=== PATIENT | female | born 1975 | race American Indian/Alaskan Native ===

== ENCOUNTER 2021-09-11 16:29 | Observation (INO) | payer SELFPAY ==
[2021-09-11 17:14] LABS: Mean Corpuscular HGB Conc 30 % (30-34); Platelet Count 407 K/mm3 (140-440); Red Blood Count 2.42 M/mm3 (3.65-5.03); Red Cell Distribution Width 19.9 % (13.2-15.2)
[2021-09-11 17:16] LABS: Hematocrit 15.7 % (30.3-42.9); Hemoglobin 4.7 gm/dl (10.1-14.3); Mean Corpuscular Volume 65 fl (79-97)
[2021-09-11 18:19] LABS: Bilirubin,Urine NEG (Negative); Blood,Urine LG (Negative); Color,Urine Yellow (Yellow); Protein,Urine <15 mg/dL mg/dL (Negative); Urobilinogen,Urine < 2.0 mg/dL (<2.0)
[2021-09-11 18:23] LABS: Mucus,Urine FEW /HPF
[2021-09-11] MEDS ORDERED: SODIUM CHLORIDE 0.9% 500 ML 500 ML IV ONE ×2 (18:24→18:43)
--- NOTE | 2021-09-11 18:35 | Emergency Department Report ---
ED Female HPI - General Chief complaint: Vaginal Bleeding Stated complaint: VAGINAL BLOOD CLOTS FOR OVER 3WEEKS Time Seen by Provider: 09/11/21 17:49 Source: patient Mode of arrival: Ambulatory Limitations: No Limitations - History of Present Illness Initial comments: 46-year-old female the past medical history of iron deficiency anemia, uterine fibroids and previous thyroid cancer status post thyroidectomy currently on Synthroid presents to the hospital complaining of lightheadedness, fatigue, and intermittent palpitations. Patient states she can only stand for approximately 1 minute before feel like she is going to pass out. Patient has been noncompliant with iron medication x2 months and has been having heavy vaginal bleeding with passage of clots for least 3 weeks. Patient is currently having vaginal bleeding. patient recently made an appointment with DIRECTOR OF NEUROLOGY scheduled for with [facility] physicians. - Related Data Home Medications Medication Instructions Recorded Confirmed Last Taken Levothyroxine 100 mcg PO DAILY 09/11/21 09/11/21 Unknown Allergies Allergy/AdvReac Type Severity Reaction Status Date / Time Penicillins Allergy Unknown Verified 09/11/21 16:33 ED Review of Systems ROS: Stated complaint: VAGINAL BLOOD CLOTS FOR OVER 3WEEKS Other details as noted in HPI Comment: All other systems reviewed and negative ED Past Medical Hx - Past Medical History Previous Medical History?: Yes Hx of Cancer: Yes (thyroid) Additional medical history: Uterine fibroids, Anemia - Surgical History Past Surgical History?: Yes Additional Surgical History: thyroidectomy - Social History Smoking Status: Never Smoker Substance Use Type: None - Medications Home Medications: Home Medications Medication Instructions Recorded Confirmed Last Taken Type Levothyroxine 100 mcg PO DAILY 09/11/21 09/11/21 Unknown History ED Physical Exam - General Limitations: No Limitations - Other Other exam information: General: No acute distress Head: Atraumatic Eyes: normal appearance ENT: Moist mucous membranes Neck: Normal appearance, no midline tenderness Chest: Clear to auscultation bilaterally CV: Regular rate and rhythm Abdomen: Soft, normal bowel sounds, nontender, nondistended, no rebound or guarding Back: Normal inspection Extremity: Normal inspection, full range of motion Neuro: Alert O x 3, no facial asymmetry, speech clear, no gross motor sensory deficit Psych: Appropriate behavior Skin: Pale nailbeds ED Course Vital Signs 09/11/21 09/11/21 09/11/21 16:36 18:08 18:12 Temperature 98.5 F Pulse Rate 95 H 94 H Respiratory 18 17 Rate Blood Pressure 101/64 O2 Sat by Pulse 100 97 Oximetry 09/11/21 09/11/21 09/11/21 18:16 18:21 18:30 Temperature Pulse Rate 75 76 Respiratory 15 9 L Rate Blood Pressure 111/62 104/71 O2 Sat by Pulse 92 97 100 Oximetry - Consultations Consultation #1: 09/11/21 18:30 Case discussed with on-call DIRECTOR OF NEUROLOGY Dr. Dr. Alvarado who will admit patient and order additional PRBCs as needed ED Medical Decision Making - Lab Data Result diagrams: 09/11/21 16:58 Lab Results 09/11/21 09/11/21 09/11/21 Range/Units 16:58 16:58 18:11 WBC 4.0 L (4.5-11.0) K/mm3 RBC 2.42 L (3.65-5.03) M/mm3 Hgb 4.7 L* (10.1-14.3) gm/dl Hct 15.7 L* (30.3-42.9) % MCV 65 L (79-97) fl MCH 19 L (28-32) pg MCHC 30 (30-34) % RDW 19.9 H (13.2-15.2) % Plt Count 407 (140-440) K/mm3 HCG, Qual Negative (Negative) Urine Color (Yellow) Urine Turbidity (Clear) Urine pH (5.0-7.0) Ur Specific [place] (1.003-1.030) Urine Protein (Negative) mg/dL Urine Glucose (UA) (Negative) mg/dL Urine Ketones (Negative) mg/dL Urine Blood (Negative) Urine Nitrite (Negative) Urine Bilirubin (Negative) Urine Urobilinogen (<2.0) mg/dL Ur Leukocyte Esterase (Negative) Urine WBC (Auto) (0.0-6.0) /HPF Urine RBC (Auto) (0.0-6.0) /HPF U Epithel Cells (Auto) (0-13.0) /HPF Urine Mucus /HPF Blood Type O POSITIVE Crossmatch See Detail 09/11/21 Range/Units Unknown WBC (4.5-11.0) K/mm3 RBC (3.65-5.03) M/mm3 Hgb (10.1-14.3) gm/dl Hct (30.3-42.9) % MCV (79-97) fl MCH (28-32) pg MCHC (30-34) % RDW (13.2-15.2) % Plt Count (140-440) K/mm3 HCG, Qual (Negative) Urine Color Yellow (Yellow) Urine Turbidity Hazy (Clear) Urine pH 7.0 (5.0-7.0) Ur Specific [place] 1.016 (1.003-1.030) Urine Protein <15 mg/dl (Negative) mg/dL Urine Glucose (UA) Neg (Negative) mg/dL Urine Ketones 20 (Negative) mg/dL Urine Blood Lg (Negative) Urine Nitrite Neg (Negative) Urine Bilirubin Neg (Negative) Urine Urobilinogen < 2.0 (<2.0) mg/dL Ur Leukocyte Esterase Neg (Negative) Urine WBC (Auto) 1.0 (0.0-6.0) /HPF Urine RBC (Auto) 182.0 (0.0-6.0) /HPF U Epithel Cells (Auto) 3.0 (0-13.0) /HPF Urine Mucus Few /HPF Blood Type Crossmatch - Medical Decision Making 46-year-old female with history of uterine fibroids and iron deficiency anemia presents to the hospital complaining of symptoms of significant anemia. Hemoglobin 4.7. Patient have a heavy vaginal bleeding for the past 3 weeks and has been noncompliant with iron tablets. No hypotension, tachycardia, or hypoxia in the ED 1 unit of PRBC ordered at this time. She will be admitted to DIRECTOR OF NEUROLOGY. Critical care attestation.: If time is entered above; I have spent that time in minutes in the direct care of this critically ill patient, excluding procedure time. ED Disposition Clinical Impression: Menorrhagia, Symptomatic anemia, Fibroid uterus, Acquired hypothyroidism Disposition: ADMITTED INPATIENT Is pt being admited?: Yes Condition: Stable Time of Disposition: 18:31 (Dr. alvarado)
[2021-09-11] MEDS ORDERED: IBUPROFEN 800 MG TAB PO PRN (18:43)
[2021-09-11] MEDS ORDERED: MORPHINE 4 MG/1 ML INJ IV PRN (18:43)
[2021-09-11] MEDS ORDERED: ACETAMINOPHEN 325 MG TAB PO PRN ×2 (18:43→18:52)
[2021-09-11 18:46] LABS: INR 0.96 (0.87-1.13); Partial Thromboplastin Time 28.4 Sec. (24.2-36.6)
[2021-09-11] MEDS ORDERED: DOCUSATE SODIUM 100 MG CAP PO PRN (18:52)
--- NOTE | 2021-09-12 09:47 | History and Physical Report ---
History of Present Illness Date of examination: 09/12/21 Date of admission: 09/11/21 18:52 Chief complaint: I was bleeding a lot and a lot of clots were coming out. 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 She was also feeling dizzy, lightheaded, and having heart palpitations. Pt states that she has a normal menstrual cycle up to when she had her thyroid removed d/t thyroid cancer. Since her thyroidectomy in 2013, her cycles have been irregular and heavy. Pt states that she was "just dealing with the bleeding at home", but when her cycles became too heavy, she sought medical attention from her PCP. She was prescribed iron supplementation and referred to a SENIOR COMMUNICATIONS SPECIALIST. She has her first appointment on 09/16. She also states that she wanted to seek a second opinion regarding her condition. Of note: patient has not been compliant with her iron supplementation (Prescribed by her PCP) for the last 2 months because she does not like taking medication and it caused constipation. She states that she has been taking an herbal supplement that has been working for her and when she discontinued this herbal supplement her symptoms of anemia returned. Pt mentioned frequently that she had fibroids and wanted to know the difference between fibroids and perimenopause. She attributes her anemia and heavy vaginal bleeding to having fibroids, which she states that she has had for years. 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 History: fibroids Family/Genetic History: none Social history: no significant social history - Obstetrical History : 3 Para: 3 Hx # Term Pregnancies: 3 Number of Pregnancies: 0 Spontaneous Abortions: 0 Induced : 0 Number of Living Children: 3 Medications and Allergies Allergies Allergy/AdvReac Type Severity Reaction Status Date / Time Penicillins Allergy Unknown Verified 09/11/21 16:33 Home Medications Medication Instructions Recorded Confirmed Last Taken Type Levothyroxine 100 mcg PO DAILY 09/11/21 09/11/21 Unknown History Active Meds: Active Medications Acetaminophen (Acetaminophen 325 Mg Tab) 1,000 mg PO Q6H PRN PRN Reason: Pain, Mild (1-3) Docusate Sodium (Docusate Sodium 100 Mg Cap) 100 mg PO Q12H PRN PRN Reason: Constipation Ibuprofen (Ibuprofen 800 Mg Tab) 800 mg PO Q8H PRN PRN Reason: Pain, Moderate (4-6) Miscellaneous Medication (Levothyroxine) 100 mcg PO DAILY REGINA Multivitamins/Iron/Calcium ( Ohc72-Tg Fumarate-Folic Acid Vit Tab) 1 each PO QDAY REGINA Review of Systems All systems: negative - Vital Signs Vital signs: Vital Signs Temp Pulse Resp BP Pulse Ox 98.5 F 95 H 18 101/64 100 09/11/21 16:36 09/11/21 16:36 09/11/21 16:36 09/11/21 16:36 09/11/21 16:36 Temp Pulse Resp BP Pulse Ox 98.3 F 86 18 97/62 98 09/12/21 02:43 09/12/21 02:43 09/12/21 02:43 09/12/21 02:43 09/12/21 02:43 Pt would not allow a full exam at this time. Was not able to assess her vaginal bleeding. Per patient: bleeding has stopped since receiving transfusion. Ulnar deviation noted to her hands with the right hand more pronounced then the left. - Physical Exam Cardiovascular: Regular rate Lungs: Positive: Normal air movement Extremities: Positive: normal Results Result Diagrams: 09/11/21 16:58 Abnormal lab results 09/11/21 09/11/21 Range/Units 16:58 18:11 WBC 4.0 L (4.5-11.0) K/mm3 RBC 2.42 L (3.65-5.03) M/mm3 Hgb 4.7 L* (10.1-14.3) gm/dl Hct 15.7 L* (30.3-42.9) % MCV 65 L (79-97) fl MCH 19 L (28-32) pg RDW 19.9 H (13.2-15.2) % Crossmatch See Detail All other labs normal. Assessment and Plan A: 46 y.o. symptomatic anemia, menorrhagia. - Patient Problems (1) Menorrhagia Current Visit: Yes Status: Acute Qualifiers: Menorrhagia type: with irregular cycle Qualified Code(s): N92.1 - Excessive and frequent menstruation with irregular cycle Plan to address problem: Consulted with Dr. Alvarado. Labs drawn and sent from ER: -Coagulation studies -Urinalysis -CBC w/o diff -HCG Qual Pt is s/p transfusion: received 3 units PRBCs. Will redraw H/H 4 hours after last transfusion finished. - ordered for 1000. Awaiting results. If Hgb above 7, will discharge home with f/u in office in 1 wk. Pt declines medication to further assist in decreasing and stopping vaginal bleeding. (2) Symptomatic anemia Current Visit: Yes Status: Acute Plan to address problem: Ordered and transfused: 3 units PRBCs. Continue to monitor for worsening feelings of dizziness, lightheadedness. - Monitor for new development of chest pain and shortness of breath.
[2021-09-12] MEDS ORDERED: PRENATAL VIT27-FE FUMARATE-FOLIC ACID VIT TAB PO SCH (10:00)
[2021-09-12] MEDS ORDERED: NON-FORMULARY EACH (Levothyroxine 100 MCG) PO SCH (10:00)
[2021-09-12 13:04] VITALS: BP 96/57
[2021-09-12 13:29] LABS: Hematocrit 25.1 % (30.3-42.9); Hemoglobin 7.8 gm/dl (10.1-14.3)
--- NOTE | 2021-09-12 14:18 | Discharge Summary ---
Providers - Providers Date of Admission: 09/11/21 18:52 Date of discharge: 09/12/21 Attending physician: MARIO HDZ Primary care physician: ROSALINA JACKSON Hospitalization Reason for admission: other (Menorrhagia and symptomatic anemia) Pertinent studies: Of note: patient states that she will not take iron supplementation at this time. She would like to return to taking her herbal iron supplement. She is aware that she can hand picker Rx from pharmacy when ready if she desires. On discharge, patient denied chest pain, feeling lightheaded, dizzy, and short of breath. Discussed follow up in the office in 1 week. Pt provided number to office on discharge instructions. Hospital course: S: Pt doing well. Denies chest pain, shortness of breath, feeling dizzy and/or lightheaded. She states she is much better after transfusion of PRBC's. Per pt, vaginal bleeding has stopped. O: VSS. H/H 7.8/25.1. A: 46 y.o. now with asymptomatic anemia, s/p transfusion of 3 units of PRBC's. P: Discharge home with instructions. Pt to follow up in the office in 1 week. Condition at discharge: Good Disposition: 01 HOME / SELF CARE / HOMELESS - Discharge Diagnoses (1) Menorrhagia Status: Acute Qualifiers: Menorrhagia type: with irregular cycle Qualified Code(s): N92.1 - Excessive and frequent menstruation with irregular cycle (2) Symptomatic anemia Status: Acute Plan - Discharge Medications Prescriptions: Docusate Sodium [Colace] 100 mg PO BID PRN #60 capsule PRN Reason: Constipation Ferrous Sulfate [Feosol 325 MG tab] 325 mg PO QDAY #30 tablet - Provider Discharge Summary Additional instructions: [] Smoking cessation referral if applicable(refer to patient education folder for contact #) [] Refer to [facility] Booklet Call your doctor immediately for: * Fever > 100.5 * Heavy vaginal bleeding ( >1 pad per hour) * Severe persistent headache * Shortness of breath * Reddened, hot, painful area to leg or breast * Drainage or odor from incision. * Keep incision clean and dry at all times and follow doctor's instructions regarding bathing/showering - Follow up plan Follow up: EMILY GARCIA MD [Staff Physician] - 7 Days MARIO HDZ MD [Staff Physician] - 7 Days (- Thank you for allowing us to take care of you! - Please schedule an appointment in our office in 1 week. Our number is . - If you experience chest pain, feeling like you can't catch a breath, dizziness, feeling lighheaded, heavy vaginal bleeding returns and you are having to change your pad every hour, you must return to the nearest ER immediately for an evaluation. ) Forms: [facility] Discharge Summary
--- NOTE | 2021-09-13 13:18 | Electrocardiograph Report ---
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
== END 2021-09-12 15:43 | disposition home or self-care (01) ==
LOC: ED 16:29 → OB 18:52
PROVIDERS: ADMIT Obstetrics & Gynecology; ATTEND Obstetrics & Gynecology
DX: N92.1 Excessive and frequent menstruation with irregular cycle (principal); Z20.822 Contact with and (suspected) exposure to COVID-19; D25.9 Leiomyoma of uterus, unspecified; D64.9 Anemia, unspecified; N93.9 Abnormal uterine and vaginal bleeding, unspecified; E03.9 Hypothyroidism, unspecified; Z79.899 Other long term (current) drug therapy; Z98.890 Other specified postprocedural states
CPT/HCPCS: 36415; 36430; 81001; 84703; 85014; 85018; 85027; 85610; 85730; 86850; 86900; 86901; 86920; 93005; 99285; G0378; J3490; J7040; P9016; U0003